=== PATIENT | female | born 1960 | race Caucasian/White ===

== ENCOUNTER 2019-04-25 16:49 | Emergency (ER) | payer BC ==
[2019-04-25] MEDS ORDERED: dexAMETHasone 10 MG/ML VIAL ONE (17:44)
[2019-04-25] MEDS ORDERED: FLUORESCEIN SODIUM 1 MG/WRAP ONE (17:45)
[2019-04-25] MEDS ORDERED: TETRACAINE HCL 0.5% 4ML OPTH ONE (17:45)
[2019-04-25] MEDS ORDERED: VALACYCLOVIR 500 MG TAB ONE (17:45)
--- NOTE | 2019-04-25 17:54 | RAD REPORT ---
EXAM DESCRIPTION: CT - Head Brain Wo Cont - 04/25/2019 5:25 pm CLINICAL HISTORY: Numbness COMPARISON: None TECHNIQUE: Computed axial tomography of the head was obtained. IV contrast was not requested. All CT scans are performed using dose optimization technique as appropriate and may include automated exposure control or mA/KV adjustment according to patient size. FINDINGS: An intracranial bleed is not seen . The ventricles are normal in caliber. No extra-axial fluid collection is noted. . Fluid within the sinuses/ mastoids is not seen. IMPRESSION: No acute intracranial abnormality is seen. If patient's symptoms persist MRI of the bra in would be recommended.
--- NOTE | 2019-04-25 18:51 | EDPHYS ---
Physician Documentation [facility] Name: Monik Weaver Age: 58 yrs Sex: Female : 1960 Arrival Date: 04/25/2019 Time: 16:51 Bed 6 Private MD: ED Physician Benjamín Samson HPI: 04/25 17:55 This 58 yrs old Female presents to ER via Ambulatory with complaints of pm1 Numbness Of Face. 17:55 Onset: The symptoms/episode began/occurred yesterday, at 10:00. Associated signs and pm1 symptoms: Pertinent negatives:. 17:55 The patient's problem is reported as weakness, in the left side of face. Duration: The pm1 episode is continuous. Context: the episode(s) was witnessed, by co-worker(s), symptoms became apparent on April 24, 2019, occurred at work, occurred while the patient was working. The symptoms are alleviated by nothing. The symptoms are aggravated by nothing. Associated signs and symptoms: Pertinent negatives: extremity weakness or numbness. difficulty walking. Severity of symptoms: in the emergency department the symptoms are unchanged. Patient's baseline: Neuro: alert and fully oriented, Motor: no deficits, Ambulation: walks without assistance, Speech: normal. The patient has not experienced similar symptoms in the past. The patient has not recently seen a physician, [facility] out of town. Historical: - Allergies: 17:04 No Known Allergies; aj1 - Home Meds: 17:04 Estradiol Oral [Active]; levothyroxine oral [Active]; Amitriptyline Oral [Active]; aj1 nabumetone oral oral [Active]; xanaflex [Active]; Zonegran oral oral [Active]; Calcium Carbonate Oral [Active]; Vitamin D Oral [Active]; - PMHx: 17:04 Rheumatoid Arthritis; Hypothyroidism; Migraines; aj1 - Immunization history:: Flu vaccine is not up to date. - Social history:: Smoking status: Patient/guardian denies using tobacco. - Ebola Screening: : Patient denies travel to an Ebola-affected area in the 21 days before illness onset. ROS: 17:55 Constitutional: Negative for fever, chills, and weight loss, Neck: Negative for injury, pm1 pain, and swelling, Cardiovascular: Negative for chest pain, palpitations, and edema, Respiratory: Negative for shortness of breath, cough, wheezing, and pleuritic chest pain, Abdomen/GI: Negative for abdominal pain, nausea, vomiting, diarrhea, and constipation, Back: Negative for injury and pain, MS/Extremity: Negative for injury and deformity, Skin: Negative for injury, rash, and discoloration. 17:55 Eyes: Positive for scratchy sensation to left eye and eye drops burned, Negative for blurry vision, vision loss, visual disturbance. 17:55 ENT: Positive for left sided ear pain. 17:55 Neuro: Positive for left sided facial weakness, Negative for altered mental status, dizziness, headache, seizure activity, Extremity weakness or numbness. Exam: 17:55 Constitutional: This is a well developed, well nourished patient who is awake, alert, pm1 and in no acute distress. Head/Face: Normocephalic, atraumatic. Eyes: Pupils equal round and reactive to light, extra-ocular motions intact. Lids and lashes normal. Conjunctiva and sclera are non-icteric and not injected. Cornea within normal limits. Periorbital areas with no swelling, redness, or edema. ENT: Nares patent. No nasal discharge, no septal abnormalities noted. Tympanic membranes are normal and external auditory canals are clear. Oropharynx with no redness, swelling, or masses, exudates, or evidence of obstruction, uvula midline. Mucous membranes moist. Neck: Trachea midline, no thyromegaly or masses palpated, and no cervical lymphadenopathy. Supple, full range of motion without nuchal rigidity, or vertebral point tenderness. No Meningismus. Chest/axilla: Normal chest wall appearance and motion. Nontender with no deformity. No lesions are appreciated. Cardiovascular: Regular rate and rhythm with a normal S1 and S2. No gallops, murmurs, or rubs. Normal PMI, no JVD. No pulse deficits. Respiratory: Lungs have equal breath sounds bilaterally, clear to auscultation and percussion. No rales, rhonchi or wheezes noted. No increased work of breathing, no retractions or nasal flaring. Abdomen/GI: Soft, non-tender, with normal bowel sounds. No distension or tympany. No guarding or rebound. No evidence of tenderness throughout. Back: No spinal tenderness. No costovertebral tenderness. Full range of motion. Skin: Warm, dry with normal turgor. Normal color with no rashes, no lesions, and no evidence of cellulitis. MS/ Extremity: Pulses equal, no cyanosis. Neurovascular intact. Full, normal range of motion. 17:55 Neuro: Orientation: is normal, to person, place, time \T\ situation. Mentation: is normal, Cranial nerves: CN II- XII are normal as tested, Cerebellar function: normal finger to nose testing, Motor: moves all fours, strength is normal, strength is 5/5 in all extremities, Sensation: is normal, no obvious gross deficits, Gait: is steady, at a normal pace, without difficulty, Left forehead sparing with raising eyebrows and with smiling, face lateralizing to right side. 18:00 Radiologist reports: NO acute intracranial abnormality pm1 18:49 Eyes: Corneas: are normal, no evidence of abrasion, no foreign body, abrasion, is not pm1 appreciated, foreign body, is not appreciated, a fluorescein strip employed to appreciate the findings. Vital Signs: 17:04 BP 163 / 99; Pulse 94; Resp 18; Temp 98.6; Pulse Ox 99% on R/A; Weight 70.31 kg (R); aj1 Height 5 ft. 5 in. (165.10 cm) (R); 17:04 Body Mass Index 25.79 (70.31 kg, 165.10 cm) aj1 Visual Acuity: 18:03 Left Eye Visual acuity 20/25, ; Right Eye Visual acuity 20/20, ; Without Lenses; sv MDM: 17:31 Patient medically screened. pm1 17:46 Data reviewed: vital signs. Data interpreted: Pulse oximetry: on room air is 99 %. pm1 Interpretation: normal. 17:46 ED course: Patient with complaints of left ear pain for the past few days prior to pm1 onset of left sided facial symptoms. No visible rash present on head. TM, canal and external ear within normal limits bilaterally. Possible Howe salomon, therefore I will prescribe the patient antiviral in addition to steroid therapy. 18:49 Counseling: I had a detailed discussion with the patient and/or guardian regarding: the pm1 historical points, exam findings, and any diagnostic results supporting the discharge/admit diagnosis, radiology results, the need for outpatient follow up, a family practitioner, a neurologist, to return to the emergency department if symptoms worsen or persist or if there are any questions or concerns that arise at home. 04/25 16:58 Order name: CT Head Brain wo Cont; Complete Time: 18:00 snw 04/25 17:41 Order name: Visual Acuity; Complete Time: 18:03 pm1 04/25 17:58 Order name: EKG Electrocardiogram EDTX 04/25 17:41 Order name: Eye Tray; Complete Time: 18:02 pm1 04/25 17:41 Order name: Fluoresene Opth strip; Complete Time: 18:02 pm1 Administered Medications: 17:40 Drug: Tetracaine Drops 0.5 % 1 drops {Note: given to Jose RM} Route: Ophthalmic; sv Site: left eye; 18:02 Drug: Decadron 10 mg Route: IM; Site: right gluteus; sv 19:00 Follow up: Response: No adverse reaction sv 19:23 Follow up: Response: No adverse reaction ak1 18:02 Drug: Valtrex 1000 mg Route: PO; sv 19:00 Follow up: Response: No adverse reaction sv 19:23 Follow up: Response: No adverse reaction ak1 Disposition: 04/25/19 18:50 Discharged to Home. Impression: Martinez's palsy. - Condition is Stable. - Discharge Instructions: Martinez Palsy, Adult. - Prescriptions for Valtrex 1 g Oral Tablet - take 1 tablet by ORAL route every 8 hours for 7 days; 21 tablet. prednisone 10 mg Oral tablet - take 1 tablet by ORAL route as directed Take 6 tablets daily for 3 days, then 4 tablets daily for 3 days, then 2 tablets daily for 2 days, then 1 tablet daily for 2 days; 36 tablet. - Medication Reconciliation Form, Thank You Letter, Antibiotic Education, Prescription Opioid Use form. - Follow up: Emergency Department; When: As needed; Reason: Worsening of condition. Follow up: Private Physician; When: 2 - 3 days; Reason: Recheck today's complaints, Continuance of care, Re-evaluation by your physician. - Problem is new. - Symptoms have improved. Addendum: 04/28/2019 09:06 Co-signature as Attending Physician, Benjamín Samson MD I agree with the assessment and k dr plan of care. Signatures: Dispatcher [employer] [facility] Arlen Gordon RN RN aj1 Martha Handley RN RN sv Benjamín Samson MD MD [facility] Almita Peng RN RN ak1 Jose Jimenez, DENTAL INSTRUMENT MAKER DENTAL INSTRUMENT MAKER pm1 Corrections: (The following items were deleted from the chart) 04/25 19:28 18:50 04/25/2019 18:50 Discharged to Home. Impression: Martinez's palsy. Condition is ak1 Stable. Discharge Instructions: Martinez Palsy, Adult. Prescriptions for Valtrex 1 g Oral Tablet - take 1 tablet by ORAL route every 8 hours for 7 days; 21 tablet. and Forms are Medication Reconciliation Form, Thank You Letter, Antibiotic Education, Prescription Opioid Use. Follow up: Emergency Department; When: As needed; Reason: Worsening of condition. Follow up: Private Physician; When: 2 - 3 days; Reason: Recheck today's complaints, Continuance of care, Re-evaluation by your physician. Problem is new. Symptoms have improved. pm1
--- NOTE | 2019-04-25 18:51 | ER ---
Nurse's Notes [facility] Name: Monik Weaver Age: 58 yrs Sex: Female : 1960 Arrival Date: 04/25/2019 Time: 16:51 Bed 6 Private MD: Diagnosis: Martinez's palsy Presentation: 04/25 16:58 Presenting complaint: Patient states: Numbness to the face since 10:00 yesterday, She aj1 has been unable to to close her left eye, can not raise her left eyebrow, unequal smile on left side. Hand food vendor are equal bilaterally. Patient ambulated to triage with a steady. Transition of care: patient was not received from another setting of care. Onset of symptoms was April 25, 2019 at 10:00. Risk Assessment: Do you want to hurt yourself or someone else? Patient reports no desire to harm self or others. Initial Sepsis Screen: Does the patient meet any 2 criteria? No. Patient's initial sepsis screen is negative. Does the patient have a suspected source of infection? No. Patient's initial sepsis screen is negative. Care prior to arrival: None. 16:58 Method Of Arrival: Ambulatory [facility] 16:58 Acuity: DIVYA 3 aj1 17:06 Note Discussed patient with El Fan NP. CT head ordered, no code stroke at this aj time per El Fan NP. Triage Assessment: 17:04 General: Appears in no apparent distress. comfortable, Behavior is calm, cooperative, aj1 appropriate for age. Pain: Complains of pain in left temporal area Pain currently is 8 out of 10 on a pain scale. Neuro: Level of Consciousness is awake, alert, obeys commands, Oriented to person, place, time, situation, Desk Operator are equal bilaterally Moves all extremities. Full function Gait is steady, Speech is normal, Facial droop on left, Numbness in left side of face. Cardiovascular: Patient's skin is warm and dry. Respiratory: Airway is patent Respiratory effort is even, unlabored, Respiratory pattern is regular, symmetrical. Historical: - Allergies: 17:04 No Known Allergies; aj1 - Home Meds: 17:04 Estradiol Oral [Active]; levothyroxine oral [Active]; Amitriptyline Oral [Active]; aj1 nabumetone oral oral [Active]; xanaflex [Active]; Zonegran oral oral [Active]; Calcium Carbonate Oral [Active]; Vitamin D Oral [Active]; - PMHx: 17:04 Rheumatoid Arthritis; Hypothyroidism; Migraines; aj1 - Immunization history:: Flu vaccine is not up to date. - Social history:: Smoking status: Patient/guardian denies using tobacco. - Ebola Screening: : Patient denies travel to an Ebola-affected area in the 21 days before illness onset. Screenin:00 Abuse screen: Denies threats or abuse. Denies injuries from another. Nutritional sv screening: No deficits noted. Tuberculosis screening: No symptoms or risk factors identified. Fall Risk None identified. Assessment: 17:45 General: Appears in no apparent distress. comfortable, well groomed, well developed, sv Behavior is calm, cooperative, appropriate for age. Pain: Complains of pain in left ear. Neuro: Level of Consciousness is awake, alert, obeys commands, Oriented to person, place, time, situation, Desk Operator are equal bilaterally Moves all extremities. Full function Gait is steady, Speech is normal, Facial symmetry appears normal, Facial symmetry: tongue is midline. Respiratory: Respiratory effort is even, unlabored, Respiratory pattern is regular, symmetrical. Derm: Skin is pink, warm \T\ dry. Vital Signs: 17:04 BP 163 / 99; Pulse 94; Resp 18; Temp 98.6; Pulse Ox 99% on R/A; Weight 70.31 kg (R); aj1 Height 5 ft. 5 in. (165.10 cm) (R); 17:04 Body Mass Index 25.79 (70.31 kg, 165.10 cm) aj1 Visual Acuity: 18:03 Left Eye Visual acuity 20/25, ; Right Eye Visual acuity 20/20, ; Without Lenses; sv ED Course: 16:51 Patient arrived in ED. as 17:00 Triage completed. aj1 17:04 Arm band placed on Patient placed in waiting room, Patient notified of wait time. aj1 17:27 CT Head Brain wo Cont In Process Unspecified. EDMS 17:29 Martha Handley, STEVIE is Primary Nurse. sv 17:31 Jose Jimenez NP is PHCP. pm1 17:31 Benjamín Samson MD is Attending Physician. pm1 18:00 Patient has correct armband on for positive identification. Bed in low position. Call light in reach. Door closed. Head of bed elevated. 18:40 Assist provider with eye exam of left eye. using fluorescein stain, Performed by yudelka Jimenez NP Patient tolerated well. 19:24 Primary Nurse role handed off by Martha Handley RN 19:28 Patient did not have IV access during this emergency room visit. ak1 Administered Medications: 17:40 Drug: Tetracaine Drops 0.5 % 1 drops {Note: given to Jose MEYERS.} Route: Ophthalmic; Site: left eye; 18:02 Drug: Decadron 10 mg Route: IM; Site: right gluteus; sv 19:00 Follow up: Response: No adverse reaction sv 19:23 Follow up: Response: No adverse reaction ak1 18:02 Drug: Valtrex 1000 mg Route: PO; sv 19:00 Follow up: Response: No adverse reaction sv 19:23 Follow up: Response: No adverse reaction ak1 Outcome: 18:50 Discharge ordered by MD. pm1 19:28 Discharged to home ambulatory. ak1 19:28 Condition: good 19:28 Discharge instructions given to patient, Instructed on discharge instructions, follow up and referral plans. medication usage, Demonstrated understanding of instructions, follow-up care, medications, Prescriptions given X 2. 19:28 Patient left the ED. ak1 Signatures: Dispatcher [employer] EDMS Arlen Gordon RN RN aj1 Martha Handley, Terri Sosa RN, Amber, RN RN ak1 Jose Jimenez NP GEAR DESIGN ENGINEER pm1
[2019-04-25 21:24] VITALS: BP 163/99; TEMP 98.6; O2SAT 99
--- NOTE | 2019-04-26 14:16 | EKG ---
Test Date: 2019-04-25 Test Time: 17:38:34 Undergraduate Internship: MATTIE MEASUREMENT RESULTS: Intervals: Rate: 82 OK: 172 QRSD: 88 QT: 380 QTc: 443 [place]: P: 53 OK: 172 QRS: 18 T: -84 INTERPRETIVE STATEMENTS: Normal sinus rhythm T wave abnormality, consider inferior ischemia T wave abnormality, consider anterolateral ischemia Abnormal ECG No previous ECG available for comparison Electronically Signed On 04-26-19 14:13:35 CDT by Akin Smart
== END 2019-04-25 19:28 | disposition home or self-care (01) ==
LOC: ER 16:49
DX: G51.0 Bell's palsy (principal); E03.9 Hypothyroidism, unspecified
CPT/HCPCS: 93005; 70450; 96372; 99284; J1100